=== PATIENT | male | born 1965 | race Caucasian/White ===

== ENCOUNTER 2018-04-04 12:39 | Emergency (ER) | payer MEDICAID ==
[~2018-04-04] VITALS: Ht 180.3 cm; Wt 87.0 kg
[~2018-04-04 12:39] MED LIST: DARU800T; ETRA200T; RITO100T
[2018-04-04 13:11] VITALS: BP 124/69
== END 2018-04-04 16:41 | disposition left against medical advice (07) ==
LOC: ER 12:39
DX: R05 Cough (principal); R50.9 Fever, unspecified; Z53.21 Procedure and treatment not carried out due to patient leaving prior to being seen by health care provider

== ENCOUNTER 2018-04-07 16:54 | Emergency (ER) | payer MEDICAID ==
[~2018-04-07] VITALS: Ht 177.8 cm; Wt 77.0 kg
[2018-04-07 16:59] VITALS: BP 131/73
== END 2018-04-07 21:00 | disposition left against medical advice (07) ==
LOC: ER 16:54
DX: Z53.21 Procedure and treatment not carried out due to patient leaving prior to being seen by health care provider (principal)

== ENCOUNTER 2018-04-08 01:08 | Inpatient (IN) | payer MEDICAID ==
[~2018-04-08] VITALS: Ht 180.3 cm; Wt 88.5 kg
[2018-04-08] MEDS ORDERED: LEVOFLOXACIN 750MG PREMIX 150 ML IV ONE (08:45)
[2018-04-08] MEDS ORDERED: ONDANSETRON HCL 4MG/2ML INJ IV ONE (08:45)
[2018-04-08 08:51] LABS: HEMATOCRIT. 31.8 % (42.0-52.0); HEMOGLOBIN. 10.6 g/dL (14.0-18.0); MEAN CORPUSCULAR HEMOGLOBIN 29.9 pg (28.0-32.0); MEAN CORPUSCULAR VOLUME 90.1 fL (80.0-94.0); MEAN PLATELET VOLUME 8.7 fl (7.4-10.4); PLATELET 366 x1000/uL (130-400); RED BLOOD CELL COUNT 3.53 mill/uL (4.7-6.1)
[2018-04-08 09:07] LABS: CHLORIDE 101 mEq/L (98-107)
[2018-04-08 09:16] LABS: BG BASE EXCESS 3.5 mmol/L (-2.0-2.0); BG CARBOXYHEMOGLOBIN 1.1 % (0.5-1.5); BG DEOXYHEMOGLOBIN 4.4 % (0.0-5.0); BG FRACTION INSPIRED OXYGEN 21; BG HCO3 ACT 26.8 mmol/L (22.0-26.0); BG METHEMOGLOBIN 0.3 % (0.0-1.5); BG OXYGEN SATURATION 95.5 % (92.0-98.5); BG OXYHEMOGLOBIN 94.2 % (94.0-97.0); BG PCO2 35.9 mmHg (35.0-45.0); BG PH 7.491 (7.350-7.450); BG PO2 75.3 mmHg (75.0-100.0); BG SAMPLE SITE RIGHT BRACHIAL; BG TOTAL HEMOGLOBIN 10.7 g/dL (12.0-18.0); BG VENT MODE ROOM AIR
[2018-04-08 10:26] LABS: NUCLEATED RED BLOOD CELLS 1 /100 WBC; PLATELET ESTIMATE NORMAL
[2018-04-08] MEDS ORDERED: SODIUM CHLORIDE 0.9% 1,000 ML IV SCH (14:44)
[2018-04-08] MEDS ORDERED: ENOXAPARIN 40MG/0.4ML SYR SUBCUT SCH (14:45)
[2018-04-08] MEDS ORDERED: AZITHROMYCIN 500 MG in DEXT 5% WATER 250 ML IV SCH ×2 (14:45→21:30)
[2018-04-08] MEDS ORDERED: ONDANSETRON HCL 4MG/2ML INJ IV PRN (14:45)
[2018-04-08] MEDS ORDERED: CEFTRIAXONE 1 G PREMIX 50 ML IV SCH ×2 (14:45→21:30)
[2018-04-08] MEDS ORDERED: DOCUSATE SODIUM 100MG CAPSULE PO PRN (14:45)
[2018-04-08] MEDS ORDERED: MAGNESIUM/ALUMINUM HYDROXIDE/SIMETHICONE 30ML UDC PO PRN (14:45)
[2018-04-08] MEDS: GUAIFENESIN 200MG/10ML SUGAR FREE UDC PO PRN (18:31)
[2018-04-08 22:00] VITALS: BP 138/85
[2018-04-08] MEDS: SODIUM CHLORIDE 0.9% 1,000 ML IV SCH (23:08)
[2018-04-08] MEDS: AZITHROMYCIN 500 MG TABLET PO SCH (23:08)
[2018-04-08] MEDS: HYDROCODONE/ACETAMINOPHEN 5/325MG TABLET PO PRN (23:40)
[2018-04-08] MEDS: CEFTRIAXONE 1 G PREMIX 50 ML IV SCH (23:41)
[2018-04-09] VITALS: BP 132/83
[2018-04-09] MEDS: GUAIFENESIN 200MG/10ML SUGAR FREE UDC PO PRN ×2 (02:34→18:52)
[2018-04-09 04:00] VITALS: BP 114/57
[2018-04-09 08:00] VITALS: BP 128/82
[2018-04-09] MEDS: ENOXAPARIN 40MG/0.4ML SYR SUBCUT SCH (09:06)
[2018-04-09 12:00] VITALS: BP 125/81
[2018-04-09] MEDS: SODIUM CHLORIDE 0.9% 1,000 ML IV SCH (13:12)
[2018-04-09 16:00] VITALS: BP 141/82
[2018-04-09] MEDS ORDERED: BENZONATATE 100MG CAPSULE PO PRN (16:45)
[2018-04-09 20:00] VITALS: BP 148/85
[2018-04-09] MEDS: GUAIFENESIN 600MG ER TABLET PO SCH (20:07)
[2018-04-09] MEDS: AZITHROMYCIN 500 MG TABLET PO SCH (20:07)
[2018-04-09] MEDS: SULFAMETHOXAZOLE/TRIMETHOPRIM 800/160MG TABLET PO SCH (20:07)
[2018-04-09] MEDS: HYDROCODONE/ACETAMINOPHEN 5/325MG TABLET PO PRN (20:18)
[2018-04-09] MEDS: CEFTRIAXONE 1 G PREMIX 50 ML IV SCH (23:43)
[2018-04-10] VITALS: BP 135/86
[2018-04-10] MEDS: SODIUM CHLORIDE 0.9% 1,000 ML IV SCH ×2 (01:12→15:30)
[2018-04-10 04:00] VITALS: BP 120/66
[2018-04-10 07:06] LABS: BASOPHILS % 1.1 % (0.0-2.0); EOSINOPHILS % 2.8 % (0.0-5.0); HEMATOCRIT. 33.5 % (42.0-52.0); HEMOGLOBIN. 11.3 g/dL (14.0-18.0); LYMPHOCYTES % 18.3 % (20.0-50.0); MEAN PLATELET VOLUME 8.5 fl (7.4-10.4); MONOCYTES % 14.8 % (2.0-8.0); PLATELET 476 x1000/uL (130-400); RED BLOOD CELL COUNT 3.77 mill/uL (4.7-6.1)
[2018-04-10 08:00] VITALS: BP 148/90
[2018-04-10 08:00] LABS: CHLORIDE 104 mEq/L (98-107)
[2018-04-10] MEDS: SULFAMETHOXAZOLE/TRIMETHOPRIM 800/160MG TABLET PO SCH ×2 (08:36→20:35)
[2018-04-10] MEDS: GUAIFENESIN 600MG ER TABLET PO SCH ×2 (08:37→20:35)
[2018-04-10] MEDS: ENOXAPARIN 40MG/0.4ML SYR SUBCUT SCH (08:41)
[2018-04-10] MEDS: POTASSIUM CHLORIDE 20MEQ TABLET SR PO SCH (10:41)
[2018-04-10] MEDS: HYDROCODONE/ACETAMINOPHEN 5/325MG TABLET PO PRN ×2 (10:41→17:29)
[2018-04-10 12:00] VITALS: BP 136/83
[2018-04-10 16:00] VITALS: BP 129/71
[2018-04-10 20:00] VITALS: BP 150/91
[2018-04-10] MEDS: AZITHROMYCIN 500 MG TABLET PO SCH (20:35)
[2018-04-10] MEDS: ACETAMINOPHEN 325MG TABLET PO PRN (20:37)
[2018-04-10] MEDS: CEFTRIAXONE 1 G PREMIX 50 ML IV SCH (23:58)
[2018-04-11] VITALS: BP 133/87
[2018-04-11] MEDS: HYDROCODONE/ACETAMINOPHEN 5/325MG TABLET PO PRN ×4 (01:15→17:56)
[2018-04-11 04:00] VITALS: BP 161/91
[2018-04-11] MEDS ORDERED: VANCOMYCIN 1500MG in DEXTROSE 5% WATER 250ML IV NR (04:00)
[2018-04-11] MEDS: SULFAMETHOXAZOLE/TRIMETHOPRIM 800/160MG TABLET PO SCH ×3 (05:46→17:49)
[2018-04-11] MEDS: CLONIDINE 0.1MG TABLET PO PRN ×2 (05:48→20:23)
[2018-04-11 07:04] LABS: BASOPHILS % 1.2 % (0.0-2.0); EOSINOPHILS % 4.3 % (0.0-5.0); HEMATOCRIT. 36.4 % (42.0-52.0); HEMOGLOBIN. 12.2 g/dL (14.0-18.0); MEAN CORPUSCULAR HEMOGLOBIN 30.3 pg (28.0-32.0); MEAN CORPUSCULAR VOLUME 90.3 fL (80.0-94.0); MEAN PLATELET VOLUME 8.6 fl (7.4-10.4); MONOCYTES % 13.5 % (2.0-8.0); PLATELET 555 x1000/uL (130-400); RED BLOOD CELL COUNT 4.03 mill/uL (4.7-6.1); RED CELL DISTRIBUTION WIDTH 14.4 % (11.6-14.6)
[2018-04-11 07:40] VITALS: BP 132/88
[2018-04-11 07:48] LABS: CHLORIDE 103 mEq/L (98-107)
[2018-04-11] MEDS: GUAIFENESIN 600MG ER TABLET PO SCH ×2 (08:22→20:22)
[2018-04-11] MEDS: POTASSIUM CHLORIDE 20MEQ TABLET SR PO SCH (08:22)
[2018-04-11] MEDS: ENOXAPARIN 40MG/0.4ML SYR SUBCUT SCH (08:23)
[2018-04-11] MEDS ORDERED: VANCOMYCIN 1250MG in DEXTROSE 5% WATER 250ML IV SCH (10:00)
[2018-04-11] MEDS: NICOTINE 21MG PATCH TD SCH (11:38)
[2018-04-11 11:49] VITALS: BP 140/96
[2018-04-11] MEDS ORDERED: IPRATROPIUM/ALBUTEROL 0.5-3(2.5)MG/3ML NEB HHN PRN (12:00)
[2018-04-11] MEDS: VANCOMYCIN 1250MG in DEXTROSE 5% WATER 250ML IV SCH ×2 (13:39→21:11)
[2018-04-11 16:00] VITALS: BP 142/92
[2018-04-11] MEDS: GUAIFENESIN 200MG/10ML SUGAR FREE UDC PO PRN (17:48)
[2018-04-11] MEDS: SODIUM CHLORIDE 0.9% 1,000 ML IV SCH (17:48)
[2018-04-11 20:00] VITALS: BP 162/96
[2018-04-11] MEDS: AZITHROMYCIN 500 MG TABLET PO SCH (20:22)
[2018-04-11] MEDS: ACETAMINOPHEN 325MG TABLET PO PRN (20:23)
[2018-04-12] VITALS: BP 126/73
[2018-04-12] MEDS: SULFAMETHOXAZOLE/TRIMETHOPRIM 800/160MG TABLET PO SCH ×4 (00:37→18:32)
[2018-04-12] MEDS: CEFTRIAXONE 1 G PREMIX 50 ML IV SCH (00:37)
[2018-04-12] MEDS: HYDROCODONE/ACETAMINOPHEN 5/325MG TABLET PO PRN ×2 (02:03→20:04)
[2018-04-12 04:00] VITALS: BP 138/81
[2018-04-12 04:54] LABS: CHLORIDE 103 mEq/L (98-107)
[2018-04-12 05:03] LABS: VANCOMYCIN TROUGH 16.1 ug/mL (5.0-10.0)
[2018-04-12] MEDS: VANCOMYCIN 1250MG in DEXTROSE 5% WATER 250ML IV SCH ×3 (05:24→21:12)
[2018-04-12] MEDS: SODIUM CHLORIDE 0.9% 1,000 ML IV SCH ×2 (07:30→20:50)
[2018-04-12 08:00] VITALS: BP 146/90
[2018-04-12] MEDS: NICOTINE 21MG PATCH TD SCH (08:55)
[2018-04-12] MEDS: ENOXAPARIN 40MG/0.4ML SYR SUBCUT SCH (08:55)
[2018-04-12] MEDS: POTASSIUM CHLORIDE 20MEQ TABLET SR PO SCH (08:55)
[2018-04-12 10:09] LABS: % CD 3 POS. LYMPHOCYTES 90.2 % (57.5-86.2); % CD 4 POS. LYMPHOCYTES 14.8 % (30.8-58.5); ABSOLUTE CD 3 1082 /uL (622-2402); ABSOLUTE CD 4 HELPER 178 /uL (359-1519); ABSOLUTE CD 8 SUPPRESSOR 912 /uL (109-897); ABSOLUTE EOSINOPHILS 0.2 x10E3/uL (0.0-0.4); ABSOLUTE LYMPHOCYTES 1.2 x10E3/uL (0.7-3.1); ABSOLUTE NEUTROPHILS 5.2 x10E3/uL (1.4-7.0); BASOPHILS 0 % (Not Estab.); CD4/CD8 RATIO 0.19 (0.92-3.72); HEMATOCRIT 34.2 % (37.5-51.0); HEMATOLOGY COMMENT Note: (.); LYMPHOCYTES 16 % (Not Estab.); MEAN CORPUSCULAR HEMOGLOBIN 30.5 pg (26.6-33.0); MEAN CORPUSCULAR HGB CONC. 32.2 g/dL (31.5-35.7); MEAN CORPUSCULAR VOLUME 95 fL (79-97); MONOCYTES 13 % (Not Estab.); NEUTROPHILS 63 % (Not Estab.); RBC 3.61 x10E6/uL (4.14-5.80); RED CELL DISTRIBUTION WIDTH 14.3 % (12.3-15.4); WBC 7.5 x10E3/uL (3.4-10.8)
[2018-04-12] MEDS: GUAIFENESIN 600MG ER TABLET PO SCH ×2 (10:34→20:03)
[2018-04-12 12:00] VITALS: BP 139/87
[2018-04-12] MEDS: IPRATROPIUM/ALBUTEROL 0.5-3(2.5)MG/3ML NEB HHN SCH ×2 (15:49→21:09)
[2018-04-12 16:00] VITALS: BP 138/82
[2018-04-12 20:00] VITALS: BP 137/83
[2018-04-12] MEDS: AZITHROMYCIN 500 MG TABLET PO SCH (20:03)
[2018-04-12] MEDS: ACETAMINOPHEN 325MG TABLET PO PRN (20:03)
[2018-04-13] VITALS: BP 135/74
[2018-04-13] MEDS: SULFAMETHOXAZOLE/TRIMETHOPRIM 800/160MG TABLET PO SCH ×2 (00:47→06:10)
[2018-04-13] MEDS: CEFTRIAXONE 1 G PREMIX 50 ML IV SCH (00:48)
[2018-04-13] MEDS: IPRATROPIUM/ALBUTEROL 0.5-3(2.5)MG/3ML NEB HHN SCH ×2 (02:22→08:32)
[2018-04-13 04:00] VITALS: BP 130/68
[2018-04-13] MEDS: VANCOMYCIN 1250MG in DEXTROSE 5% WATER 250ML IV SCH (06:10)
[2018-04-13 08:00] VITALS: BP 130/68
[2018-04-13] MEDS: POTASSIUM CHLORIDE 20MEQ TABLET SR PO SCH (08:07)
[2018-04-13] MEDS: GUAIFENESIN 600MG ER TABLET PO SCH (08:07)
[2018-04-13] MEDS: ENOXAPARIN 40MG/0.4ML SYR SUBCUT SCH (08:07)
[2018-04-13] MEDS: NICOTINE 21MG PATCH TD SCH (09:00)
[2018-04-13] MEDS: SODIUM CHLORIDE 0.9% 1,000 ML IV SCH (10:10)
[2018-04-13] MEDS ORDERED: LEVO500T2 MT (10:22)
[2018-04-13] MEDS ORDERED: SULF1TAB48 MT (10:22)
[2018-04-13 10:23] VITALS: BP 130/68
== END 2018-04-13 11:15 | disposition home or self-care (01) | DRG 720 ==
LOC: ER 01:08 → 7WST 08:42 → EDBEDREQ 08:46 → EDBEDREQTM 08:46 → SUPCPDRO 14:40 → ENRESERV 20:12 → ER 21:19
PROVIDERS: ADMIT Hospitalist; ATTEND Hospitalist
DX: A41.9 Sepsis, unspecified organism (principal); J96.00 Acute respiratory failure, unspecified whether with hypoxia or hypercapnia; E43 Unspecified severe protein-calorie malnutrition; B19.20 Unspecified viral hepatitis C without hepatic coma; D64.9 Anemia, unspecified; F17.200 Nicotine dependence, unspecified, uncomplicated; J18.1 Lobar pneumonia, unspecified organism; F14.10 Cocaine abuse, uncomplicated; R74.0 Nonspecific elevation of levels of transaminase and lactic acid dehydrogenase [LDH]; F19.10 Other psychoactive substance abuse, uncomplicated; R59.0 Localized enlarged lymph nodes; Z91.14 Patient's other noncompliance with medication regimen; Z91.19 Patient's noncompliance with other medical treatment and regimen; Z88.2 Allergy status to sulfonamides; Z68.27 Body mass index [BMI] 27.0-27.9, adult
CPT/HCPCS: 36415; 36600; 71045; 71250; 80048; 80202; 82375; 82805; 83615; 83735; 86359; 86360; 87070; 87804; 93970; 96365; 96366; 96375; 99285; C1893; J0696; J1650; J1956; J2405; J3370; J7060; J7620

== ENCOUNTER → 2024-08-24 | Day surgery (SDC) | payer MEDICAID ==
[~2024-08-24] VITALS: Ht 180.3 cm; Wt 90.7 kg
[~2024-08-24] MED LIST changes: +AMLO10TA80 PO; +ASPI-1497 PO; +ATOR-388 PO; +BICT1TAB PO; +BUPIVACAINE HCL/PF 0.5% (5MG/ML) 10ML ONE; +CEFAZOLIN SODIUM 1000MG/VIAL ONE; +EPHEDRINE SULFATE 50MG/ML VIAL ONE; +FENTANYL CITRATE/PF 50MCG/ML 2ML VIAL ONE; +GLYCOPYRROLATE 0.2 MG/ML 2ML VIAL ONE; +HYDROMORPHONE HCL/PF 1MG/ML INJ IV PRN; +HYDROMORPHONE HCL/PF 1MG/ML INJ ONE; +LACTATED RINGERS 1,000 ML IV SCH; +LEVO500T2 MT; +NEOSTIGMINE METHYLSULFATE 1MG/ML 10 ML VIAL ONE; +ONDANSETRON HCL 4MG/2ML INJ IV PRN; +ONDANSETRON HCL 4MG/2ML INJ ONE; +PHENYLEPHRINE HCL 10MG/ML 1ML IV ONE; +PROPOFOL 200MG/20ML VIAL IV ONE; +ROCURONIUM BROMIDE 10MG/ML VIAL 5ML IV ONE; +SULF1TAB48 MT; +TAMS-54 PO; +THIA100T88 PO; +TIOT18CA3 IH
[2024-08-24 07:13] LABS: CLARITY URINE CLEAR (CLEAR); COLOR URINE DARK YELLOW (YELLOW); GLUCOSE URINE NEGATIVE (NEGATIVE); KETONES URINE NEGATIVE (NEGATIVE); LEUKOCYTE ESTERASE URINE 1+ (NEGATIVE); NITRITE URINE NEGATIVE (NEGATIVE); OCCULT BLOOD URINE 1+ (NEGATIVE); PH URINE 5.5 (4.5-8.0); PROTEIN URINE NEGATIVE (NEGATIVE); SPECIFIC GRAVITY URINE 1.023 (1.005-1.030)
[2024-08-24 07:33] LABS: *AMPHETAMINES SCREEN URINE NEGATIVE (NEGATIVE); *BARBITURATES SCREEN URINE NEGATIVE (NEGATIVE); *BENZODIAZEPINES SCREEN URINE NEGATIVE (NEGATIVE); *COCAINE SCREEN URINE NEGATIVE (NEGATIVE); CANNABINOID URINE SCREEN NEGATIVE (NEGATIVE); ECSTASY MDMA SCREEN URINE NEGATIVE (NEGATIVE); METHADONE URINE SCREEN NEGATIVE (NEGATIVE); OPIATES URINE SCREEN NEGATIVE (NEGATIVE); PHENCYCLIDINE URINE SCREEN NEGATIVE (NEGATIVE)
[2024-08-24 07:39] LABS: HYALINE CASTS URINE 0-5 /lpf
[2024-08-24 07:42] LABS: RBC URINE 0-2 /hpf (0-2)
[2024-08-24 07:43] LABS: BACTERIA URINE 2+; COARSE GRANULAR CASTS URINE 0-5 /lpf; MUCUS URINE 1+ /lpf (NONE/TRACE); SQUAMOUS EPITHELIAL CELL URINE NONE SEEN /lpf (RARE/1+)
== END | disposition home or self-care (01) ==
LOC: OR 06:38
PROVIDERS: ATTEND Surgery
DX: C44.619 Basal cell carcinoma of skin of left upper limb, including shoulder (principal); C44.519 Basal cell carcinoma of skin of other part of trunk; I10 Essential (primary) hypertension; Z79.82 Long term (current) use of aspirin; Z79.899 Other long term (current) drug therapy; Z98.890 Other specified postprocedural states; Z88.1 Allergy status to other antibiotic agents
CPT/HCPCS: 11606 ×2; 88304; 80305; 87086; 81003; 11604; J3010; J0665; J0690; J3490 ×3; J2405; J2371; J2704; J1171; J2710